=== PATIENT | female | born 1970 | race Two or more races ===

== ENCOUNTER 2016-10-05 06:52 | Emergency (ER) | payer MEDICAID ==
[~2016-10-05] VITALS: Ht 157.5 cm; Wt 64.0 kg
[~2016-10-05 06:52] MED LIST: CEPHALEXIN500 MG PO; IBUPROFEN800 MG ORAL; NITROFURANTOIN100 M2 ORAL
[2016-10-05] MEDS ORDERED: NKM (07:02)
[2016-10-05] MEDS ORDERED: Ketorolac 30mg Inj IV ONE (07:15)
[2016-10-05] MEDS ORDERED: Tamsulosin 0.4mg cap ORAL STA (07:23)
--- NOTE | 2016-10-05 07:25 | Emergency Room Report ---
History of Present Illness General Chief Complaint: Abdominal Pain Source: Patient Present Illness HPI Patient presents with left flank pain that is been present since last Tuesday. She was seen in a clinic and an MRI was done. This shows small stone on the left-hand side. The pain is 10/10 and radiates the rest of her body. Mainly in her left flank down. It is constant. She's had some vomiting and nausea. She denies any fevers. There is no dysuria. There is no hematuria. Pain is 10/10 now, constant. No SOB, chest pain, dyspnea, headache, joint pain, change in bowels, rashes. H/O renal stones and this feels like this again. Allergies: Coded Allergies: No Known Allergies (Unverified , 06/20/12) Patient History Past Medical History: see triage record Social History: Denies: alcohol use, drug use, smoking Social History Narrative with children Last Menstrual Period: Sep 21, 2016 Now: No : 2 Para: 2 Reviewed Nursing Documentation: PMH: Agreed, PSxH: Agreed Review of Systems All Other Systems: negative except mentioned in HPI Physical Exam Vital Signs Date Time Temp Pulse Resp B/P Pulse Ox O2 Delivery O2 Flow Rate FiO2 10/05/16 06:54 98.2 105 19 123/81 98 Room Air Sp02 EP Interpretation: reviewed, normal General Appearance: GCS 15, non-toxic, mild distress Head: normocephalic Eyes: bilateral eye PERRL, bilateral eye normal inspection ENT: moist mucus membranes Neck: supple Respiratory: lungs clear, normal breath sounds Cardiovascular #1: regular rate, rhythm Cardiovascular #2: 2+ radial (R) Gastrointestinal: normal inspection, normal bowel sounds, non tender, no mass, non-distended Genitourinary: no CVA tenderness Musculoskeletal: back normal, gait/station normal, normal range of motion Neurologic: alert, oriented x3, grossly normal Psychiatric: mood/affect normal - but in pain Skin: normal inspection, warm/dry Medical Decision Making Diagnostic Impression: Primary Impression: Renal colic ER Course Patient presents with flank pain and recent MRI + for small stone L. Ddx: pyelo , UTI, strain, stone amongst others. Significant pain requires emergent evaluation with labs. Also IV hydration, flomax and analgesia. No imaging studies indicated as h/o "small" stone. Labs significant for slight leukocytosis. No pyuria. Patient improved with treatment. Still with minimal pain. Discussed expected course. Advised to strain urine. Also advised to return if pain worsens (though this might happen if stone gets to UVJ). Patient stable for outpatient observation and treatment. Laboratory Tests Test 10/05/16 07:15 White Blood Count 12.3 K/UL (4.8-10.8) H Red Blood Count 4.39 M/UL (4.20-5.40) Hemoglobin 13.1 G/DL (12.0-16.0) Hematocrit 41.1 % (37.0-47.0) Mean Corpuscular Volume 94 FL (80-99) Mean Corpuscular Hemoglobin 29.9 PG (27.0-31.0) Mean Corpuscular Hemoglobin Concent 32.0 G/DL (32.0-36.0) Red Cell Distribution Width 12.0 % (11.6-14.8) Platelet Count 184 K/UL (150-450) Mean Platelet Volume 8.3 FL (6.5-10.1) Neutrophils (%) (Auto) 82.6 % (45.0-75.0) H Lymphocytes (%) (Auto) 11.0 % (20.0-45.0) L Monocytes (%) (Auto) 5.6 % (1.0-10.0) Eosinophils (%) (Auto) 0.2 % (0.0-3.0) Basophils (%) (Auto) 0.6 % (0.0-2.0) Urine Color Pale yellow Urine Appearance Clear Urine pH 5 (4.5-8.0) Urine Specific [place] 1.010 (1.005-1.035) Urine Protein Negative (NEGATIVE) Urine Glucose (UA) Negative (NEGATIVE) Urine Ketones Negative (NEGATIVE) Urine Occult Blood 1+ (NEGATIVE) H Urine Nitrite Negative (NEGATIVE) Urine Bilirubin Negative (NEGATIVE) Urine Urobilinogen Normal MG/DL (0.0-1.0) Urine Leukocyte Esterase 1+ (NEGATIVE) H Urine RBC 0-2 /HPF (0 - 2) Urine WBC 2-4 /HPF (0 - 2) Urine Squamous Epithelial Cells Few /LPF (NONE/OCC) Urine Bacteria Occasional /HPF (NONE) Urine HCG, Qualitative Negative Sodium Level 137 mEQ/L (135-145) Potassium Level 4.1 mEQ/L (3.4-4.9) Chloride Level 96 mEQ/L (98-107) L Carbon Dioxide Level 24 mEQ/L (20-30) Anion Gap 17 (5-15) H Blood Urea Nitrogen 12 mg/dL (7-23) Creatinine 1.0 mg/dL (0.5-0.9) H Estimate Glomerular Filtration Rate > 60 mL/min (>60) Glucose Level 108 mg/dL (74-106) H Calcium Level 9.5 mg/dL (8.6-10.2) Total Bilirubin 0.5 mg/dL (0.0-1.2) Aspartate Amino Transferase (AST) 16 U/L (5-40) Alanine Aminotransferase (ALT) 17 U/L (3-33) Alkaline Phosphatase 54 U/L (35-104) Total Protein 7.8 g/dL (6.6-8.7) Albumin 4.0 g/dL (3.5-5.2) Globulin 3.8 g/dL Albumin/Globulin Ratio 1.0 (1.0-2.7) Lipase 15 U/L (< 60) Last Vital Signs Date Time Temp Pulse Resp B/P Pulse Ox O2 Delivery O2 Flow Rate FiO2 10/05/16 10:10 98.2 73 16 97/58 100 Room Air Status: improved Disposition: HOME, SELF-CARE Condition: Improved Scripts Ondansetron Odt* (ZOFRAN ODT*) 4 Mg Tab.rapdis 4 MG ORAL Q8H Y for Nausea & Vomiting, #6 TAB 0 Refills Prov: Hao Larsen M.D. 10/05/16 Ibuprofen* (MOTRIN*) 600 Mg Tablet 600 MG ORAL Q8H Y for For Pain, #20 TAB 0 Refills Prov: Hao Larsen M.D. 10/05/16 Tramadol Hcl* (ULTRAM*) 50 Mg Tablet 50 MG ORAL Q6H Y for For Pain, #10 TAB 0 Refills Prov: Hao Larsen M.D. 10/05/16 Tamsulosin Hcl (TAMSULOSIN HCL*) 0.4 Mg Cap.er.24h 0.4 MG ORAL BEDTIME, #7 CAP Prov: Hao Larsen M.D. 10/05/16 Hao Larsen M.D. Oct 05, 2016 07:25
[2016-10-05] MEDS ORDERED: fentaNYL 100 mcg/2 mL IV ONE (07:30)
[2016-10-05] MEDS ORDERED: Tubing IV Cassette IV ONE (07:31)
[2016-10-05 07:46] LABS: APPEARANCE,URINE CLEAR; BASOPHILS % (AUTO) 0.6 % (0.0-2.0); EOSINOPHILS % (AUTO) 0.2 % (0.0-3.0); KETONES,URINE NEGATIVE (NEGATIVE); LEUKOCYTE ESTERASE ,URINE 1+ (NEGATIVE); MEAN CORPUSCULAR HEMOGLOBIN 29.9 PG (27.0-31.0); MEAN CORPUSCULAR VOLUME 94 FL (80-99); MEAN PLATELET VOLUME 8.3 FL (6.5-10.1); MONOCYTES % (AUTO) 5.6 % (1.0-10.0); NEUTROPHILS % (AUTO) 82.6 % (45.0-75.0); NITRITE,URINE NEGATIVE (NEGATIVE); PH,URINE 5 (4.5-8.0); PLATELET COUNT 184 K/UL (150-450); PROTEIN,URINE NEGATIVE (NEGATIVE); RED BLOOD COUNT 4.39 M/UL (4.20-5.40); UROBILINOGEN,URINE NORMAL MG/DL (0.0-1.0); WHITE BLOOD COUNT 12.3 K/UL (4.8-10.8)
[2016-10-05 07:55] LABS: ALANINE AMINOTRANSFERASE 17 U/L (3-33); ANION GAP 17 (5-15); ASPARTATE AMINO TRANSFERASE 16 U/L (5-40); CALCIUM 9.5 mg/dL (8.6-10.2); CARBON DIOXIDE 24 mEQ/L (20-30); CHLORIDE 96 mEQ/L (98-107); GLOMERULAR FILTRATION RATE > 60 mL/min (>60); HEMOLYSIS 2; LIPASE 15 U/L (< 60); POTASSIUM 4.1 mEQ/L (3.4-4.9); SODIUM 137 mEQ/L (135-145); TOTAL PROTEIN 7.8 g/dL (6.6-8.7)
[2016-10-05 08:08] LABS: BACTERIA,URINE OCCASIONAL /HPF; RBC,URINE 0-2 /HPF (0 - 2); SQUAMOUS EPITHELIAL CELL,UR FEW /LPF (NONE/OCC)
[2016-10-05 09:30] VITALS: BP 97/58
[2016-10-05] MEDS ORDERED: TRAMADOL HCL50 MG ORAL (09:43)
[2016-10-05] MEDS ORDERED: IBUPROFEN600 MG ORAL (09:43)
[2016-10-05] MEDS ORDERED: ZOFRAN ODT4 MG ORAL (09:43)
[2016-10-05] MEDS ORDERED: TAMSULOSIN HCL0.4 MG ORAL (09:43)
[2016-10-05 10:10] VITALS: BP 97/58
== END 2016-10-05 10:20 | disposition home or self-care (01) ==
LOC: EMR 07:38
DX: N23 Unspecified renal colic (principal)
CPT/HCPCS: 36415; 80053; 81003; 81025; 83690; 85025; 96361; 96374; 96375; 99284; J1885; J2405; J3010

== ENCOUNTER 2019-12-06 09:59 | Emergency (ER) | payer MEDICAID, OTHER ==
[~2019-12-06] VITALS: Ht 157.5 cm; Wt 63.5 kg
[~2019-12-06 09:59] MED LIST changes: +IBUPROFEN600 MG ORAL; +NKM; +TAMSULOSIN HCL0.4 MG ORAL; +TRAMADOL HCL50 MG ORAL; +ZOFRAN ODT4 MG ORAL
[2019-12-06 10:00] VITALS: BP 127/83
--- NOTE | 2019-12-06 10:01 | NUR ---
ED Nurse Note: PT. AAOX4. AMBULATORY. PT. WALKED IN TO ER FROM HOME. PER PT. SHE HAS BEEN HAVING RUNNY NOSE, BODY ACHES AND DRY COUGH X 2 WEEKS ACCOMPANIED WITH FEVER( PT. REPORTED TEMPS WERE RANGING 96-98'F).
--- NOTE | 2019-12-06 10:12 | Emergency Room Report ---
History of Present Illness General Chief Complaint: Flu Like Symptoms Source: Patient Present Illness HPI Disclaimer: Please note that this report is being documented using [employer] technology. This can lead to erroneous entry secondary to incorrect interpretation by the dictating instrument. HPI: 49-year-old otherwise healthy female presents for evaluation of flulike symptoms. Patient reports 2 weeks of subjective fevers and chills but no actual febrile temperatures were recorded though she has been taking her temperature frequently. Reports intermittent headache and persistent nonproductive cough. Denies vomiting, diarrhea, skin rash. Reported some nasal congestion and sore throat but this is improving over the past week. Symptoms continue to improve but cough persists. Has been isolating herself according to health department guidelines over the past 2 weeks. Family at home appears asymptomatic. No recent travel noted. No exposure to sick contacts otherwise. PMH: Denies PSH: Denies Allergies: Denies Social Hx: Denies Allergies: Coded Allergies: No Known Allergies (Unverified , 06/20/12) COVID-19 Screening Contact w/high risk pt: No Recent Travel to affected area: No Experienced COVID-19 symptoms?: Yes COVID-19 symptoms experienced: Shortness of Breath, Runny Nose, Flu-Like Symptoms Review of Systems All Other Systems: negative except mentioned in HPI Physical Exam Vital Signs Date Time Temp Pulse Resp B/P (MAP) Pulse Ox O2 Delivery O2 Flow Rate FiO2 12/06/19 09:51 98.4 75 20 127/83 (98) 100 Room Air General: Awake and alert, no acute distress HEENT: NC/AT. EOMI. Resp: Normal work of breathing. No cough, no wheezing, no crackles appreciated Skin: Intact. No abrasions, laceration or rash over the exposed skin MSK: Normal tone and bulk. Moving all extremities. No obvious deformity. Neuro: Awake and alert. Mentating appropriately Medical Decision Making Diagnostic Impression: Primary Impression: Influenza-like symptoms ER Course 49-year-old female presents for evaluation of flulike symptoms for 2-week improving with a persistent cough. Differential includes was not limited to viral syndrome, influenza, novel coronavirus, pneumonia, bronchitis to name a few. Overall she is well-appearing, arrives with stable vital signs, afebrile and unremarkable exam. X-ray was obtained to rule out pneumonia. No evidence of infiltrate or other pathology found. COVID-19 testing unavailable at this time. Patient is outside the treatment window for Tamiflu. Likely a viral syndrome which continues to improve. Patient is well-appearing and stable for outpatient follow-up with PMD. Continue symptomatic medications as she has been. Can return with new or worsening symptoms. Discussed contact precautions and isolation precautions with patient and family. She understands agrees with treatment plan. Chest X-Ray Diagnostic Results Chest X-Ray Diagnostic Results : Chest X-Ray Ordered: Yes # of Views/Limited/Complete: 1 View Indication: Shortness of Breath EP Interpretation: Yes Interpretation: no consolidation, no effusion, no pneumothorax, no acute cardiopulmonary disease Impression: No acute disease Electronically Signed by: Electronically signed by Dr. Andi Jeong Last Vital Signs Date Time Temp Pulse Resp B/P (MAP) Pulse Ox O2 Delivery O2 Flow Rate FiO2 12/06/19 10:00 98.4 75 20 127/83 100 Room Air Disposition: HOME, SELF-CARE Condition: Stable Andi Jeong MD Dec 06, 2019 10:12
[2019-12-06 11:00] VITALS: BP 125/78
--- NOTE | 2019-12-06 11:10 | NUR ---
ER DISCHARGE NOTE: Patient is cleared to be discharged per ERMD, pt is aox4, on room air, with stable vital signs. pt was given dc and prescription instructions, pt was able to verbalize understanding, pt id band removed. pt is able to ambulate with steady gait. pt took all belongings.
--- NOTE | 2019-12-06 11:21 | Diagnostic Imaging Report ---
Indication: Dyspnea Comparison: None A single view chest radiograph was obtained. Findings: Cardiomediastinal appearance is within normal limits for age. The lungs are clear. Pulmonary vascularity is appropriate. The diaphragmatic contour is smooth and costophrenic angles are sharp. No pleural effusions are identified. The bones are unremarkable. Impression: No acute findings
== END 2019-12-06 11:00 | disposition home or self-care (01) ==
LOC: EMR 10:20
DX: J11.1 Influenza due to unidentified influenza virus with other respiratory manifestations (principal)
CPT/HCPCS: 71045; 99283

== ENCOUNTER 2020-01-12 02:50 | Emergency (ER) | payer OTHER ==
[~2020-01-12] VITALS: Ht 157.5 cm; Wt 63.5 kg
[2020-01-12 03:02] VITALS: BP 110/67
--- NOTE | 2020-01-12 03:02 | NUR ---
ED Nurse Note: Patient walked in to ED c/o dizziness x couple of days. Reports nausea and vomiting x1 an hour ago. Stated that it gets worse whenever she leans back and turns her head. Pt also said everything around her seems spinning. Afebrile. Not in any distress. ERMD at bedside.
--- NOTE | 2020-01-12 03:15 | NUR ---
ED Nurse Note: IV line established. Blood and urine specimen obtained and collected and sent to lab.
--- NOTE | 2020-01-12 03:23 | Emergency Room Report ---
History of Present Illness General Chief Complaint: Dizziness Source: Patient Present Illness HPI Is a 49-year-old female with no significant past medical history. She presents with chief complaint of dizziness. Onset for last couple days. Worse when she leans back and turn her head. This been ongoing for last 2 hours with the most recent episode. She said everything is spinning. She felt nausea and vomiting. No recent URI symptoms. No cough or congestion. No abdominal pain or diarrhea. Similar symptoms in the past. This occurred several years ago when she came here for the same. Allergies: Coded Allergies: No Known Allergies (Unverified , 06/20/12) COVID-19 Screening Contact w/high risk pt: No Recent Travel to affected area: No Experienced COVID-19 symptoms?: Yes COVID-19 symptoms experienced: Shortness of Breath, Runny Nose, Flu-Like Symptoms Patient History Past Medical History: see triage record, old chart reviewed Past Surgical History: none Pertinent Family History: none Social History: Denies: smoking Now: No Immunizations: other Reviewed Nursing Documentation: PMH: Agreed; PSxH: Agreed Review of Systems Eye: Denies: eye pain, blurred vision ENT: Denies: ear pain, nose congestion, throat swelling Respiratory: Denies: cough, shortness of breath Cardiovascular: Denies: chest pain, palpitations Gastrointestinal: Reports: nausea, vomiting; Denies: abdominal pain, diarrhea Musculoskeletal: Denies: back pain, joint pain Skin: Denies: rash Neurological: Reports: dizziness; Denies: headache, numbness Endocrine: Denies: increased thirst, increased urine Hematologic/Lymphatic: Denies: easy bruising All Other Systems: negative except mentioned in HPI Physical Exam Vital Signs Date Time Temp Pulse Resp B/P (MAP) Pulse Ox O2 Delivery O2 Flow Rate FiO2 01/12/20 02:56 97.9 78 18 110/67 (81) 99 Room Air Vitals normal Sp02 EP Interpretation: reviewed, normal General Appearance: well appearing, no apparent distress, alert Head: normocephalic, atraumatic Eyes: bilateral eye PERRL, bilateral eye EOMI ENT: hearing grossly normal, normal pharynx Neck: full range of motion, supple, no meningismus Respiratory: chest non-tender, lungs clear, normal breath sounds Cardiovascular #1: regular rate, rhythm, no murmur Gastrointestinal: normal bowel sounds, non tender, no mass, no organomegaly, no bruit, non-distended Musculoskeletal: back normal, normal range of motion, gait/station normal Psychiatric: mood/affect normal Medical Decision Making Diagnostic Impression: Primary Impression: Vertigo Additional Impression: UTI (urinary tract infection) Qualified Codes: N30.00 - Acute cystitis without hematuria ER Course Patient presents with symptom consistent with vertigo. No evidence of central vertigo. No evidence of AAA or CVA. No evidence of neoplastic process. Will discharge home. Better now. Last Vital Signs Date Time Temp Pulse Resp B/P (MAP) Pulse Ox O2 Delivery O2 Flow Rate FiO2 01/12/20 03:02 97.9 78 18 110/67 99 Room Air Status: improved Disposition: HOME, SELF-CARE Condition: Stable Scripts Nitrofurantoin Monohyd/M-Cryst (Nitrofurantoin Stephens-Mcr 100 mg) 100 Mg Capsule 100 MG ORAL Q12H, #14 CAP Prov: Higinio Jimenes MD 01/12/20 Meclizine Hcl* (MECLIZINE*) 25 Mg Tablet 25 MG ORAL THREE TIMES A DAY, #30 TAB Prov: Higinio Jimenes MD 01/12/20 Referrals: ELIEZER BOOKER,REFERRING (PCP) Patient Instructions: Vertigo Additional Instructions: Follow-up with your doctor in 7 days. Return if symptoms worsen. Higinio Jimenes MD January 12, 2020 03:23
[2020-01-12] MEDS ORDERED: LORazepam Inj 2mg/ml 1ml IV ONE (03:30)
[2020-01-12 03:43] LABS: APPEARANCE,URINE CLEAR; BILIRUBIN, URINE NEGATIVE (NEGATIVE); GLUCOSE, URINE (UA) NEGATIVE (NEGATIVE); KETONES,URINE NEGATIVE (NEGATIVE); LEUKOCYTE ESTERASE ,URINE 2+ (NEGATIVE); NITRITE,URINE NEGATIVE (NEGATIVE); PH,URINE 6.5 (4.5-8.0); PROTEIN,URINE 1+ (NEGATIVE); UROBILINOGEN,URINE 1 MG/DL (0.0-1.0)
[2020-01-12 03:48] LABS: BASOPHILS % (AUTO) 0.9 % (0.0-2.0); EOSINOPHILS % (AUTO) 1.3 % (0.0-3.0); HEMATOCRIT 38.2 % (37.0-47.0); HEMOGLOBIN 13.2 G/DL (12.0-16.0); LYMPHOCYTES % (AUTO) 28.6 % (20.0-45.0); MEAN CORPUSCULAR VOLUME 87 FL (80-99); MONOCYTES % (AUTO) 6.4 % (1.0-10.0); NEUTROPHILS % (AUTO) 62.8 % (45.0-75.0); PLATELET COUNT 217 K/UL (150-450); RED BLOOD COUNT 4.37 M/UL (4.20-5.40); RED CELL DISTRIBUTION WIDTH 11.6 % (11.6-14.8); WHITE BLOOD COUNT 10.1 K/UL (4.8-10.8)
[2020-01-12 03:49] LABS: COLOR,URINE YELLOW
[2020-01-12 04:01] LABS: ANION GAP 6 mmol/L (5-15); BLOOD UREA NITROGEN 20 mg/dL (7-18); CALCIUM 8.8 MG/DL (8.5-10.1); CARBON DIOXIDE 31 MMOL/L (21-32); CHLORIDE 106 MMOL/L (98-107); CREATININE 0.9 MG/DL (0.55-1.30); POTASSIUM 3.9 MMOL/L (3.5-5.1); SODIUM 143 MMOL/L (136-145)
[2020-01-12] MEDS ORDERED: MECLIZINE HCL25 MG ORAL (04:19)
[2020-01-12] MEDS ORDERED: MACROBID100 MG ORAL (04:19)
[2020-01-12] MEDS ORDERED: cefTRIAXone 1 GM in NS 55 ML IVPB ONE (04:30)
[2020-01-12 04:49] VITALS: BP 115/69
--- NOTE | 2020-01-12 04:49 | NUR ---
ED Nurse Note: Pt cleared by ERMD for discharge. DC instructions/prescription was given and explained to pt and verbalized understanding of teachings. All medical deviecs such as ID band and IV line removed. Pt is AAO x4, ambulatory and left with all personal belongings. Accomapneid by her .
== END 2020-01-12 04:49 | disposition home or self-care (01) ==
LOC: EMR 03:14
DX: R42 Dizziness and giddiness (principal); N30.00 Acute cystitis without hematuria
CPT/HCPCS: 36415; 80048; 81001; 81025; 85025; 87086; 96361; 96365; 96375; 99284; J0696; J7030